=== PATIENT | male | born 1960 | race African-American/Black ===

== ENCOUNTER → 2017-01-27 | Outpatient (CLI) | payer MEDICARE, MEDICAID ==
[~2017-01-27] MED LIST: IOHEXOL-300 100 ML BOTTLE ONE; SODIUM CHLORIDE 0.9% 10ML VIAL ONE
== END | disposition home or self-care (01) ==
LOC: NM 07:19
PROVIDERS: ATTEND Urology
DX: C61 Malignant neoplasm of prostate (principal); N40.0 Benign prostatic hyperplasia without lower urinary tract symptoms
CPT/HCPCS: 74178; 78306; A4216; A9503; Q9967

== ENCOUNTER → 2017-02-01 | Outpatient (CLI) | payer MEDICARE, MEDICAID ==
[~2017-02-01] MED LIST changes: +GADOBENATE DIMEGLUMINE 529 MG/ML 10ML IV ONE; -IOHEXOL-300 100 ML BOTTLE ONE; -SODIUM CHLORIDE 0.9% 10ML VIAL ONE
== END | disposition home or self-care (01) ==
LOC: MRI 08:06
PROVIDERS: ATTEND Urology
DX: C61 Malignant neoplasm of prostate (principal); M51.24 Other intervertebral disc displacement, thoracic region
CPT/HCPCS: 72157; A9577

== ENCOUNTER → 2017-10-06 | Outpatient (CLI) | payer MEDICARE, MEDICAID | END | disposition home or self-care (01) | LOC: RAD 10:10 | PROVIDERS: ATTEND Specialist | DX: J98.11 Atelectasis (principal); R22.2 Localized swelling, mass and lump, trunk | CPT/HCPCS: 71020 ==

== ENCOUNTER → 2022-01-13 | Outpatient (CLI) | payer MEDICARE, MEDICAID | END | disposition home or self-care (01) | LOC: CT 09:51 | PROVIDERS: ATTEND Internal Medicine Nephrology | DX: N28.89 Other specified disorders of kidney and ureter (principal); N13.30 Unspecified hydronephrosis; N28.82 Megaloureter; R59.1 Generalized enlarged lymph nodes; Z98.890 Other specified postprocedural states | CPT/HCPCS: 74176 ==

== ENCOUNTER 2022-07-02 16:07 | Inpatient (IN) | payer MEDICARE, MEDICAID ==
[~2022-07-02] VITALS: Ht 157.5 cm; Wt 71.7 kg
[2022-07-02] MEDS ORDERED: ONDANSETRON HCL 4MG/2ML INJ IV STA (18:22)
[2022-07-02] MEDS ORDERED: MORPHINE SULFATE 4 MG/ML CPJ (NOT FOR IM USE) IV STA (18:22)
[2022-07-02] MEDS ORDERED: PIPERACILLIN/TAZ 3.375G PREMIX 50 ML IV ONE (18:30)
[2022-07-02 19:01] LABS: HEMATOCRIT. 29.7 % (42.0-52.0); HEMOGLOBIN. 9.7 g/dL (14.0-18.0); MEAN CORPUSCULAR HEMOGLOBIN 30.8 pg (28.0-32.0); MEAN CORPUSCULAR VOLUME 94.6 fL (80.0-94.0); MEAN PLATELET VOLUME 7.4 fl (7.4-10.4); PLATELET 280 x1000/uL (130-400); RED BLOOD CELL COUNT 3.14 mill/uL (4.7-6.1); RED CELL DISTRIBUTION WIDTH 13.2 % (11.6-14.6)
[2022-07-02 19:06] LABS: CHLORIDE 109 mEq/L (98-107)
[2022-07-02 19:20] LABS: INR 1.2; PROTHROMBIN TIME 12.5 sec (9.6-11.0)
[2022-07-02 19:22] LABS: PLATELET ESTIMATE NORMAL
[2022-07-02] MEDS ORDERED: MORPHINE SULFATE 4 MG/ML CPJ (NOT FOR IM USE) IV NR (22:15)
[2022-07-02] MEDS ORDERED: ONDANSETRON HCL 4MG/2ML INJ IV NR (22:15)
[2022-07-02] MEDS ORDERED: PIPERACILLIN/TAZ 3.375G PREMIX 50 ML IV NR (22:15)
[2022-07-03] VITALS (7 sets, daily range): BP systolic 101–140; BP diastolic 51–73
[2022-07-03 00:10] LABS: CLARITY URINE TURBID (CLEAR); COLOR URINE YELLOW (YELLOW); KETONES URINE NEGATIVE (NEGATIVE); LEUKOCYTE ESTERASE URINE 3+ (NEGATIVE); NITRITE URINE NEGATIVE (NEGATIVE); OCCULT BLOOD URINE 2+ (NEGATIVE); PROTEIN URINE 2+ (NEGATIVE); SPECIFIC GRAVITY URINE 1.009 (1.005-1.030); UROBILINOGEN URINE 0.2 E.U./dL (0.2-1.0)
[2022-07-03] MEDS ORDERED: ACETAMINOPHEN 325MG TABLET PO PRN (03:15)
[2022-07-03] MEDS ORDERED: METOPROLOL TARTRATE 100MG TABLET PO NR (04:30)
[2022-07-03] MEDS ORDERED: METO100T16 MT (05:27)
[2022-07-03] MEDS ORDERED: ASPI-1497 PO (05:27)
[2022-07-03] MEDS ORDERED: PIPERACILLIN/TAZOBACTAM 3.375 G in DEXTROSE 5% WATER 50 ML IV SCH ×2 (06:00→09:00)
[2022-07-03 07:08] LABS: HEMATOCRIT. 28.3 % (42.0-52.0); HEMOGLOBIN. 9.2 g/dL (14.0-18.0); MEAN CORPUSCULAR HEMOGLOBIN 30.6 pg (28.0-32.0); MEAN CORPUSCULAR VOLUME 93.9 fL (80.0-94.0); MEAN PLATELET VOLUME 7.9 fl (7.4-10.4); PLATELET 250 x1000/uL (130-400); RED BLOOD CELL COUNT 3.01 mill/uL (4.7-6.1); RED CELL DISTRIBUTION WIDTH 13.4 % (11.6-14.6)
[2022-07-03] MEDS ORDERED: MORPHINE SULFATE 2 MG/ML CPJ (NOT FOR IM USE) IV PRN (07:45)
[2022-07-03] MEDS ORDERED: IPRATROPIUM BROMIDE (0.02%) 0.5MG/2.5ML NEB HHN SCH (08:00)
[2022-07-03] MEDS ORDERED: MEROPENEM 500 MG in SODIUM CHLORIDE 0.9% 50 ML IV SCH (08:45)
[2022-07-03] MEDS ORDERED: ASPIRIN 81MG TABLET PO SCH ×2 (09:00)
[2022-07-03] MEDS ORDERED: CLOPIDOGREL 75MG TABLET PO SCH (09:00)
[2022-07-03] MEDS ORDERED: PANTOPRAZOLE SODIUM 40 MG/VIAL IV SCH (09:00)
[2022-07-03] MEDS ORDERED: METOPROLOL TARTRATE 100MG TABLET PO SCH (09:00)
[2022-07-03] MEDS ORDERED: DEXTROSE 50% WATER 50ML SYRINGE IV PRN (09:15)
[2022-07-03 10:00] LABS: HDL CHOLESTEROL 35 mg/dL (40-59); LDL CHOLESTEROL 28 mg/dL (5-100)
[2022-07-03] MEDS: TAMSULOSIN HCL 0.4MG SR CAPSULE PO SCH (10:12)
[2022-07-03] MEDS: PANTOPRAZOLE SODIUM 40 MG/VIAL IV SCH (10:13)
[2022-07-03] MEDS: SODIUM CHLORIDE 0.9% 1,000 ML IV SCH ×2 (10:13→16:11)
[2022-07-03] MEDS: METOPROLOL TARTRATE 100MG TABLET PO SCH ×2 (10:14→20:52)
[2022-07-03] MEDS: LINEZOLID 600 MG PREMIX 300 ML IV SCH ×2 (10:16→20:52)
[2022-07-03] MEDS: BICALUTAMIDE 50 MG TABLET PO SCH (11:06)
[2022-07-03] MEDS: BUDESONIDE 0.5MG/2ML NEB HHN SCH ×2 (12:45→20:11)
[2022-07-03] MEDS: BLOOD SUGAR DIAGNOSTIC STRIP TEST SCH ×3 (13:02→20:53)
[2022-07-03] MEDS: MEROPENEM 1000MG in NORMAL SALINE 100ML IV SCH (13:02)
[2022-07-03] MEDS: INSULIN LISPRO 100 UNITS/ML SUBCUT SCH ×3 (13:03→21:00)
[2022-07-03] MEDS ORDERED: DIATRIZOATE MEGLUMINE 300ML INFUS BTL UR ONE (16:29)
[2022-07-03] MEDS: IPRATROPIUM BROMIDE (0.02%) 0.5MG/2.5ML NEB HHN SCH (20:11)
[2022-07-03 21:37] LABS: PLATELET ESTIMATE NORMAL
[2022-07-04] VITALS (7 sets, daily range): BP systolic 93–114; BP diastolic 47–56
[2022-07-04] MEDS: SODIUM CHLORIDE 0.9% 1,000 ML IV SCH ×3 (01:49→16:13)
[2022-07-04] MEDS: IPRATROPIUM BROMIDE (0.02%) 0.5MG/2.5ML NEB HHN SCH ×4 (02:23→21:03)
[2022-07-04] MEDS ORDERED: SODI650T MT (05:37)
[2022-07-04] MEDS ORDERED: FINA5TAB11 MT (05:37)
[2022-07-04] MEDS ORDERED: TAMS-11 MT (05:37)
[2022-07-04] MEDS: BLOOD SUGAR DIAGNOSTIC STRIP TEST SCH ×4 (06:08→21:22)
[2022-07-04] MEDS: INSULIN LISPRO 100 UNITS/ML SUBCUT SCH ×4 (06:08→21:29)
[2022-07-04] MEDS: PANTOPRAZOLE SODIUM 40 MG/VIAL IV SCH (07:54)
[2022-07-04] MEDS: LINEZOLID 600 MG PREMIX 300 ML IV SCH ×2 (07:54→21:27)
[2022-07-04] MEDS: TAMSULOSIN HCL 0.4MG SR CAPSULE PO SCH (07:54)
[2022-07-04] MEDS: BICALUTAMIDE 50 MG TABLET PO SCH (07:59)
[2022-07-04] MEDS: METOPROLOL TARTRATE 100MG TABLET PO SCH ×2 (08:07→21:00)
[2022-07-04] MEDS: ASPIRIN 81MG TABLET PO SCH (08:08)
[2022-07-04 08:33] LABS: HEMOGLOBIN. 8.7 g/dL (14.0-18.0); MEAN CORPUSCULAR HEMOGLOBIN 31.2 pg (28.0-32.0); MEAN CORPUSCULAR VOLUME 93.1 fL (80.0-94.0); MEAN PLATELET VOLUME 8.3 fl (7.4-10.4); PLATELET 226 x1000/uL (130-400); RED BLOOD CELL COUNT 2.79 mill/uL (4.7-6.1); RED CELL DISTRIBUTION WIDTH 13.7 % (11.6-14.6)
[2022-07-04] MEDS: BUDESONIDE 0.5MG/2ML NEB HHN SCH ×2 (08:53→21:02)
[2022-07-04] MEDS: MEROPENEM 1000MG in NORMAL SALINE 100ML IV SCH (10:13)
[2022-07-04] MEDS: HEPARIN 5000 UNITS/ML VIAL SUBCUT SCH ×2 (10:14→21:28)
[2022-07-04 11:22] LABS: PLATELET ESTIMATE NORMAL
[2022-07-04] MEDS ORDERED: MAGNESIUM 4 G PREMIX 100 ML IV NR (15:00)
[2022-07-05] MEDS: SODIUM CHLORIDE 0.9% 1,000 ML IV SCH ×3 (02:11→20:43)
[2022-07-05] MEDS: IPRATROPIUM BROMIDE (0.02%) 0.5MG/2.5ML NEB HHN SCH ×4 (02:55→20:01)
[2022-07-05 04:00] VITALS: BP 107/53
[2022-07-05] MEDS: BLOOD SUGAR DIAGNOSTIC STRIP TEST SCH ×3 (06:35→20:32)
[2022-07-05] MEDS: INSULIN LISPRO 100 UNITS/ML SUBCUT SCH ×3 (06:35→20:32)
[2022-07-05 08:00] VITALS: BP 109/55
[2022-07-05] MEDS: BUDESONIDE 0.5MG/2ML NEB HHN SCH ×2 (08:15→20:01)
[2022-07-05] MEDS: LINEZOLID 600 MG PREMIX 300 ML IV SCH (08:15)
[2022-07-05] MEDS: TAMSULOSIN HCL 0.4MG SR CAPSULE PO SCH (08:16)
[2022-07-05] MEDS: HEPARIN 5000 UNITS/ML VIAL SUBCUT SCH ×2 (08:16→20:43)
[2022-07-05] MEDS: ASPIRIN 81MG TABLET PO SCH (08:16)
[2022-07-05] MEDS: PANTOPRAZOLE SODIUM 40 MG/VIAL IV SCH (08:16)
[2022-07-05] MEDS: BICALUTAMIDE 50 MG TABLET PO SCH (08:16)
[2022-07-05 08:23] LABS: HEMATOCRIT. 23.9 % (42.0-52.0); HEMOGLOBIN. 7.9 g/dL (14.0-18.0); MEAN CORPUSCULAR HEMOGLOBIN 30.8 pg (28.0-32.0); MEAN CORPUSCULAR VOLUME 93.6 fL (80.0-94.0); MEAN PLATELET VOLUME 8.2 fl (7.4-10.4); PLATELET 202 x1000/uL (130-400); RED BLOOD CELL COUNT 2.55 mill/uL (4.7-6.1); RED CELL DISTRIBUTION WIDTH 13.9 % (11.6-14.6)
[2022-07-05] MEDS: METOPROLOL TARTRATE 100MG TABLET PO SCH ×2 (08:26→20:43)
[2022-07-05] MEDS ORDERED: NALOXONE HCL 0.4MG/ML VIAL IV PRN (09:15)
[2022-07-05] MEDS: MEROPENEM 1000MG in NORMAL SALINE 100ML IV SCH (10:09)
[2022-07-05 11:29] LABS: PLATELET ESTIMATE NORMAL
[2022-07-05 12:00] VITALS: BP 111/49
[2022-07-05 16:00] VITALS: BP 124/55
[2022-07-05 20:00] VITALS: BP 125/81
[2022-07-06] VITALS: BP 115/59
[2022-07-06] MEDS: IPRATROPIUM BROMIDE (0.02%) 0.5MG/2.5ML NEB HHN SCH ×3 (01:05→15:34)
[2022-07-06 04:00] VITALS: BP 109/54
[2022-07-06] MEDS: SODIUM CHLORIDE 0.9% 1,000 ML IV SCH (04:58)
[2022-07-06] MEDS: BLOOD SUGAR DIAGNOSTIC STRIP TEST SCH ×2 (05:50→12:29)
[2022-07-06] MEDS: INSULIN LISPRO 100 UNITS/ML SUBCUT SCH ×2 (05:50→12:29)
[2022-07-06 06:21] LABS: HEMATOCRIT. 24.6 % (42.0-52.0); HEMOGLOBIN. 8.1 g/dL (14.0-18.0); MEAN CORPUSCULAR VOLUME 94.2 fL (80.0-94.0); MEAN PLATELET VOLUME 8.2 fl (7.4-10.4); PLATELET 191 x1000/uL (130-400); RED BLOOD CELL COUNT 2.61 mill/uL (4.7-6.1); RED CELL DISTRIBUTION WIDTH 13.6 % (11.6-14.6)
[2022-07-06 08:00] VITALS: BP 111/82
[2022-07-06] MEDS: ASPIRIN 81MG TABLET PO SCH (08:48)
[2022-07-06] MEDS: TAMSULOSIN HCL 0.4MG SR CAPSULE PO SCH (08:49)
[2022-07-06] MEDS: PANTOPRAZOLE SODIUM 40 MG/VIAL IV SCH (08:50)
[2022-07-06] MEDS: BICALUTAMIDE 50 MG TABLET PO SCH (08:50)
[2022-07-06] MEDS: HEPARIN 5000 UNITS/ML VIAL SUBCUT SCH (08:50)
[2022-07-06] MEDS: METOPROLOL TARTRATE 100MG TABLET PO SCH (08:50)
[2022-07-06 09:09] LABS: PLATELET ESTIMATE NORMAL
[2022-07-06] MEDS: MEROPENEM 1000MG in NORMAL SALINE 100ML IV SCH (09:31)
[2022-07-06 12:00] VITALS: BP 137/64
[2022-07-06 15:27] VITALS: BP 137/64
[2022-07-06 16:00] VITALS: BP 140/65
[2022-07-06] MEDS ORDERED: CITRIC ACID/SODIUM CITRATE SOLN 15ML UDC PO SCH (17:00)
[2022-07-06] MEDS ORDERED: EPOETIN ALFA-EPBX 4,000 UNIT/ML VIAL SUBCUT SCH (21:00)
== END 2022-07-06 17:15 | DRG 871 ==
LOC: ER 16:07 → SUPCPDRO 17:46 → MICUSO 22:47 → EDBEDREQTM 23:04 → EDBEDREQ 23:04 → EDBEDREQTM 23:12 → ENRESERV 23:44 → 8WST 07-03 01:29
PROVIDERS: ADMIT Internal Medicine; ATTEND Internal Medicine
PROC: 5A09357 Assistance with Respiratory Ventilation, Less than 24 Consecutive Hours, Continuous Positive Airway Pressure (ICD-10-PCS; principal; 2022-07-04)
PROC: 5A09357 Assistance with Respiratory Ventilation, Less than 24 Consecutive Hours, Continuous Positive Airway Pressure (ICD-10-PCS; 2022-07-05)
PROC: 5A09357 Assistance with Respiratory Ventilation, Less than 24 Consecutive Hours, Continuous Positive Airway Pressure (ICD-10-PCS; 2022-07-06)
DX: A41.50 Gram-negative sepsis, unspecified (principal); G82.50 Quadriplegia, unspecified; N17.0 Acute kidney failure with tubular necrosis; I13.0 Hypertensive heart and chronic kidney disease with heart failure and stage 1 through stage 4 chronic kidney disease, or unspecified chronic kidney disease; I50.32 Chronic diastolic (congestive) heart failure; J98.11 Atelectasis; K59.2 Neurogenic bowel, not elsewhere classified; N13.6 Pyonephrosis; N39.0 Urinary tract infection, site not specified; N18.4 Chronic kidney disease, stage 4 (severe); R65.20 Severe sepsis without septic shock; E11.22 Type 2 diabetes mellitus with diabetic chronic kidney disease; E83.42 Hypomagnesemia; G47.33 Obstructive sleep apnea (adult) (pediatric); J44.9 Chronic obstructive pulmonary disease, unspecified; N31.9 Neuromuscular dysfunction of bladder, unspecified; D63.1 Anemia in chronic kidney disease; Z20.822 Contact with and (suspected) exposure to COVID-19; I25.10 Atherosclerotic heart disease of native coronary artery without angina pectoris; M48.02 Spinal stenosis, cervical region; R59.0 Localized enlarged lymph nodes; B96.89 Other specified bacterial agents as the cause of diseases classified elsewhere; B95.2 Enterococcus as the cause of diseases classified elsewhere; Q85.00 Neurofibromatosis, unspecified; S14.109D Unspecified injury at unspecified level of cervical spinal cord, subsequent encounter; Z96.0 Presence of urogenital implants; Z85.46 Personal history of malignant neoplasm of prostate; Z87.891 Personal history of nicotine dependence; Z92.3 Personal history of irradiation; Z90.79 Acquired absence of other genital organ(s); X58.XXXD Exposure to other specified factors, subsequent encounter; Z83.3 Family history of diabetes mellitus
CPT/HCPCS: 36415; 71045; 74176; 74430; 80048; 80053; 80061; 81003; 82962; 83605; 83735; 84145; 84484; 85025; 87077; 87186; 87426; 93005; 93306; 94640; 94660; 97162; 97166; 99291; C1893; C9113; J1644; J1815; J2020; J2185; J2270; J2405; J2543; J3475; J7030; J7060; J7626; Q9958

== ENCOUNTER 2022-07-06 17:57 | Inpatient (IN) | payer MEDICARE, MEDICAID ==
[~2022-07-06] VITALS: Ht 157.5 cm; Wt 63.5 kg
[~2022-07-06 17:57] MED LIST changes: +ASPI-1497 PO; +FINA5TAB11 MT; -GADOBENATE DIMEGLUMINE 529 MG/ML 10ML IV ONE; +METO100T16 MT; +SODI650T MT; +TAMS-11 MT
[2022-07-06 19:30] VITALS: BP 152/62
[2022-07-06 20:09] VITALS: BP 153/62
[2022-07-06] MEDS ORDERED: DEXTROSE 50% WATER 50ML SYRINGE IV PRN ×5 (20:45→21:30)
[2022-07-06] MEDS ORDERED: BLOOD SUGAR DIAGNOSTIC STRIP TEST SCH (21:00)
[2022-07-06] MEDS ORDERED: MORPHINE SULFATE 2 MG/ML CPJ (NOT FOR IM USE) IV PRN (21:30)
[2022-07-06] MEDS ORDERED: NALOXONE HCL 0.4 MG/ML 1ML VIAL IV PRN (21:30)
[2022-07-06] MEDS: SODIUM CHLORIDE 0.9% 1,000 ML IV SCH (22:40)
[2022-07-06] MEDS: EPOETIN ALFA-EPBX 4,000 UNIT/ML VIAL SUBCUT SCH (22:41)
[2022-07-06] MEDS: METOPROLOL TARTRATE 100MG TABLET PO SCH (22:42)
[2022-07-06] MEDS: HEPARIN 5000 UNITS/ML VIAL SUBCUT SCH (22:43)
[2022-07-07 05:58] LABS: BASOPHILS % 0.4 % (0.0-2.0); EOSINOPHILS % 0.6 % (0.0-5.0); HEMATOCRIT. 24.4 % (42.0-52.0); LYMPHOCYTES % 8.8 % (20.0-50.0); MEAN CORPUSCULAR HEMOGLOBIN 30.9 pg (28.0-32.0); MEAN CORPUSCULAR VOLUME 94.4 fL (80.0-94.0); MEAN PLATELET VOLUME 8.6 fl (7.4-10.4); MONOCYTES % 12.4 % (2.0-8.0); NEUTROPHILS % 77.8 % (40.0-76.0); PLATELET 187 x1000/uL (130-400); RED BLOOD CELL COUNT 2.58 mill/uL (4.7-6.1); RED CELL DISTRIBUTION WIDTH 13.6 % (11.6-14.6)
[2022-07-07 06:13] LABS: CHLORIDE 111 mEq/L (98-107)
[2022-07-07] MEDS: BLOOD SUGAR DIAGNOSTIC STRIP TEST SCH ×4 (06:30→20:54)
[2022-07-07] MEDS ORDERED: BLOOD SUGAR DIAGNOSTIC STRIP TEST SCH ×3 (06:30)
[2022-07-07] MEDS: IPRATROPIUM BROMIDE (0.02%) 0.5MG/2.5ML NEB HHN SCH ×4 (07:45→20:12)
[2022-07-07 08:00] VITALS: BP 144/68
[2022-07-07] MEDS: SODIUM CHLORIDE 0.9% 1,000 ML IV SCH ×2 (08:00→18:30)
[2022-07-07] MEDS: CITRIC ACID/SODIUM CITRATE SOLN 15ML UDC PO SCH ×2 (09:00→17:00)
[2022-07-07] MEDS: INSULIN LISPRO 100 UNITS/ML SUBCUT SCH ×4 (09:00→20:55)
[2022-07-07] MEDS ORDERED: INSULIN LISPRO 100 UNITS/ML SUBCUT SCH (09:00)
[2022-07-07] MEDS: BICALUTAMIDE 50 MG TABLET PO SCH (09:00)
[2022-07-07] MEDS: HEPARIN 5000 UNITS/ML VIAL SUBCUT SCH ×2 (09:47→20:54)
[2022-07-07] MEDS: PANTOPRAZOLE SODIUM 40 MG/VIAL IV SCH (09:47)
[2022-07-07] MEDS: ASPIRIN 81MG TABLET PO SCH (09:48)
[2022-07-07] MEDS: TAMSULOSIN HCL 0.4MG SR CAPSULE PO SCH (09:48)
[2022-07-07] MEDS: METOPROLOL TARTRATE 100MG TABLET PO SCH ×2 (09:50→20:56)
[2022-07-07] MEDS ORDERED: MEROPENEM 1,000 MG in SODIUM CHLORIDE 0.9% 100 ML IV SCH (10:00)
[2022-07-07] MEDS: ACETAMINOPHEN 325MG TABLET PO PRN ×3 (11:20→23:06)
[2022-07-07] MEDS: CEFEPIME 1,000 MG in DEXTROSE 5% WATER 50 ML IV SCH (12:30)
[2022-07-07] MEDS ORDERED: HYDROCODONE/ACETAMINOPHEN 10/325MG TABLET PO PRN (14:00)
[2022-07-07 20:00] VITALS: BP 140/56
[2022-07-08] MEDS: IPRATROPIUM BROMIDE (0.02%) 0.5MG/2.5ML NEB HHN SCH ×3 (01:51→20:29)
[2022-07-08] MEDS: SODIUM CHLORIDE 0.9% 1,000 ML IV SCH (04:00)
[2022-07-08] MEDS: BLOOD SUGAR DIAGNOSTIC STRIP TEST SCH ×4 (05:22→21:54)
[2022-07-08] MEDS: INSULIN LISPRO 100 UNITS/ML SUBCUT SCH ×4 (06:28→21:00)
[2022-07-08 06:33] LABS: BASOPHILS % 0.4 % (0.0-2.0); EOSINOPHILS % 0.8 % (0.0-5.0); HEMATOCRIT. 24.9 % (42.0-52.0); HEMOGLOBIN. 8.1 g/dL (14.0-18.0); LYMPHOCYTES % 8.3 % (20.0-50.0); MEAN CORPUSCULAR HEMOGLOBIN 31.2 pg (28.0-32.0); MEAN CORPUSCULAR VOLUME 95.5 fL (80.0-94.0); MEAN PLATELET VOLUME 8.5 fl (7.4-10.4); MONOCYTES % 12.1 % (2.0-8.0); NEUTROPHILS % 78.4 % (40.0-76.0); PLATELET 186 x1000/uL (130-400); RED CELL DISTRIBUTION WIDTH 13.4 % (11.6-14.6)
[2022-07-08 07:04] LABS: FOLIC ACID (FOLATE) SERUM 6.5 ng/mL (>5.38)
[2022-07-08 08:00] VITALS: BP 157/76
[2022-07-08] MEDS: ASPIRIN 81MG TABLET PO SCH (09:44)
[2022-07-08] MEDS: PANTOPRAZOLE SODIUM 40 MG/VIAL IV SCH (09:44)
[2022-07-08] MEDS: HEPARIN 5000 UNITS/ML VIAL SUBCUT SCH ×2 (09:44→21:53)
[2022-07-08] MEDS: TAMSULOSIN HCL 0.4MG SR CAPSULE PO SCH (09:45)
[2022-07-08] MEDS: METOPROLOL TARTRATE 100MG TABLET PO SCH ×2 (09:45→21:52)
[2022-07-08] MEDS: BICALUTAMIDE 50 MG TABLET PO SCH (10:21)
[2022-07-08] MEDS: CITRIC ACID/SODIUM CITRATE SOLN 15ML UDC PO SCH ×2 (10:21→18:01)
[2022-07-08] MEDS: CEFEPIME 1,000 MG in DEXTROSE 5% WATER 50 ML IV SCH (12:49)
[2022-07-08] MEDS: PROMETHAZINE/DEXTROMETHORPHAN 6.25-15MG/5ML BOTTLE 120ML PO PRN ×2 (12:49→18:46)
[2022-07-08] MEDS ORDERED: LEVO500T90 MT (14:16)
[2022-07-08 20:00] VITALS: BP 112/52
[2022-07-08] MEDS: EPOETIN ALFA-EPBX 4,000 UNIT/ML VIAL SUBCUT SCH (21:54)
[2022-07-09] MEDS: IPRATROPIUM BROMIDE (0.02%) 0.5MG/2.5ML NEB HHN SCH ×4 (02:09→21:18)
[2022-07-09] MEDS: BLOOD SUGAR DIAGNOSTIC STRIP TEST SCH ×4 (06:30→21:02)
[2022-07-09 06:36] LABS: BASOPHILS % 0.2 % (0.0-2.0); EOSINOPHILS % 0.9 % (0.0-5.0); HEMATOCRIT. 25.2 % (42.0-52.0); HEMOGLOBIN. 8.3 g/dL (14.0-18.0); LYMPHOCYTES % 7.3 % (20.0-50.0); MEAN CORPUSCULAR VOLUME 93.9 fL (80.0-94.0); MEAN PLATELET VOLUME 8.3 fl (7.4-10.4); NEUTROPHILS % 83.6 % (40.0-76.0); PLATELET 199 x1000/uL (130-400); RED BLOOD CELL COUNT 2.68 mill/uL (4.7-6.1); RED CELL DISTRIBUTION WIDTH 13.6 % (11.6-14.6)
[2022-07-09 08:00] VITALS: BP 154/76
[2022-07-09] MEDS: INSULIN LISPRO 100 UNITS/ML SUBCUT SCH ×4 (09:00→21:00)
[2022-07-09] MEDS: CITRIC ACID/SODIUM CITRATE SOLN 15ML UDC PO SCH ×2 (09:29→16:09)
[2022-07-09] MEDS: ASPIRIN 81MG TABLET PO SCH (09:29)
[2022-07-09] MEDS: BICALUTAMIDE 50 MG TABLET PO SCH (09:30)
[2022-07-09] MEDS: FAMOTIDINE 20MG TABLET PO SCH (09:31)
[2022-07-09] MEDS: METOPROLOL TARTRATE 100MG TABLET PO SCH ×2 (09:31→21:05)
[2022-07-09] MEDS: TAMSULOSIN HCL 0.4MG SR CAPSULE PO SCH (09:32)
[2022-07-09] MEDS: HEPARIN 5000 UNITS/ML VIAL SUBCUT SCH ×2 (10:40→21:03)
[2022-07-09] MEDS: CEFEPIME 1,000 MG in DEXTROSE 5% WATER 50 ML IV SCH (11:29)
[2022-07-09] MEDS: PROMETHAZINE/DEXTROMETHORPHAN 6.25-15MG/5ML BOTTLE 120ML PO PRN (11:30)
[2022-07-09 20:00] VITALS: BP 149/47
[2022-07-09] MEDS: HYDROCODONE/ACETAMINOPHEN 10/325MG TABLET PO PRN (23:26)
[2022-07-10] MEDS: IPRATROPIUM BROMIDE (0.02%) 0.5MG/2.5ML NEB HHN SCH ×4 (02:17→21:03)
[2022-07-10] MEDS: BLOOD SUGAR DIAGNOSTIC STRIP TEST SCH ×4 (06:45→21:00)
[2022-07-10 08:00] VITALS: BP 156/80
[2022-07-10] MEDS: INSULIN LISPRO 100 UNITS/ML SUBCUT SCH ×4 (09:00→21:00)
[2022-07-10] MEDS: ASPIRIN 81MG TABLET PO SCH (09:59)
[2022-07-10] MEDS: BICALUTAMIDE 50 MG TABLET PO SCH (09:59)
[2022-07-10] MEDS: AMLODIPINE 5MG TABLET PO SCH (10:00)
[2022-07-10] MEDS: CITRIC ACID/SODIUM CITRATE SOLN 15ML UDC PO SCH ×2 (10:01→16:01)
[2022-07-10] MEDS: METOPROLOL TARTRATE 100MG TABLET PO SCH ×2 (10:01→21:33)
[2022-07-10] MEDS: FAMOTIDINE 20MG TABLET PO SCH (10:01)
[2022-07-10] MEDS: TAMSULOSIN HCL 0.4MG SR CAPSULE PO SCH (10:02)
[2022-07-10] MEDS: HEPARIN 5000 UNITS/ML VIAL SUBCUT SCH ×2 (10:02→21:31)
[2022-07-10] MEDS: CEFEPIME 1,000 MG in DEXTROSE 5% WATER 50 ML IV SCH (12:01)
[2022-07-10] MEDS: HYDROCODONE/ACETAMINOPHEN 10/325MG TABLET PO PRN (14:08)
[2022-07-10] MEDS: PROMETHAZINE/DEXTROMETHORPHAN 6.25-15MG/5ML BOTTLE 120ML PO PRN (16:01)
[2022-07-10 20:06] VITALS: BP 106/61
[2022-07-10] MEDS: EPOETIN ALFA-EPBX 4,000 UNIT/ML VIAL SUBCUT SCH (21:34)
[2022-07-11] MEDS: IPRATROPIUM BROMIDE (0.02%) 0.5MG/2.5ML NEB HHN SCH ×3 (01:53→20:24)
[2022-07-11 05:56] LABS: HEMATOCRIT. 24.6 % (42.0-52.0); HEMOGLOBIN. 8.1 g/dL (14.0-18.0); MEAN CORPUSCULAR HEMOGLOBIN 30.9 pg (28.0-32.0); MEAN CORPUSCULAR VOLUME 93.8 fL (80.0-94.0); PLATELET 260 x1000/uL (130-400); RED BLOOD CELL COUNT 2.62 mill/uL (4.7-6.1); RED CELL DISTRIBUTION WIDTH 13.6 % (11.6-14.6)
[2022-07-11] MEDS: BLOOD SUGAR DIAGNOSTIC STRIP TEST SCH ×4 (06:05→20:49)
[2022-07-11 08:00] VITALS: BP 139/83
[2022-07-11] MEDS: BUDESONIDE 0.5MG/2ML NEB HHN SCH ×2 (08:00→20:25)
[2022-07-11] MEDS: TAMSULOSIN HCL 0.4MG SR CAPSULE PO SCH (08:35)
[2022-07-11] MEDS: ASPIRIN 81MG TABLET PO SCH (08:35)
[2022-07-11] MEDS: FAMOTIDINE 20MG TABLET PO SCH (08:35)
[2022-07-11] MEDS: AMLODIPINE 5MG TABLET PO SCH (08:36)
[2022-07-11] MEDS: METOPROLOL TARTRATE 100MG TABLET PO SCH ×2 (08:36→20:49)
[2022-07-11] MEDS: HEPARIN 5000 UNITS/ML VIAL SUBCUT SCH ×2 (08:37→20:45)
[2022-07-11] MEDS: INSULIN LISPRO 100 UNITS/ML SUBCUT SCH ×4 (08:37→20:50)
[2022-07-11] MEDS: BICALUTAMIDE 50 MG TABLET PO SCH (09:17)
[2022-07-11] MEDS: HYDROCODONE/ACETAMINOPHEN 10/325MG TABLET PO PRN ×2 (09:28→14:15)
[2022-07-11] MEDS: BISACODYL 10MG SUPP PR SCH (09:54)
[2022-07-11 10:04] LABS: ATYPICAL LYMPHOCYTES 1
[2022-07-11 10:05] LABS: PLATELET ESTIMATE NORMAL
[2022-07-11] MEDS: CEFEPIME 1,000 MG in DEXTROSE 5% WATER 50 ML IV SCH (11:46)
[2022-07-11] MEDS: CITRIC ACID/SODIUM CITRATE SOLN 15ML UDC PO SCH ×2 (11:46→17:15)
[2022-07-11] MEDS: PROMETHAZINE/DEXTROMETHORPHAN 6.25-15MG/5ML BOTTLE 120ML PO PRN ×2 (14:18→21:10)
[2022-07-11 20:00] VITALS: BP 125/62
[2022-07-12] MEDS: IPRATROPIUM BROMIDE (0.02%) 0.5MG/2.5ML NEB HHN SCH ×5 (01:02→23:26)
[2022-07-12] MEDS: BLOOD SUGAR DIAGNOSTIC STRIP TEST SCH ×4 (06:30→20:09)
[2022-07-12 08:00] VITALS: BP 153/65
[2022-07-12] MEDS: INSULIN LISPRO 100 UNITS/ML SUBCUT SCH ×4 (09:00→20:09)
[2022-07-12] MEDS: BISACODYL 10MG SUPP PR SCH (09:00)
[2022-07-12] MEDS: CITRIC ACID/SODIUM CITRATE SOLN 15ML UDC PO SCH ×2 (09:10→16:38)
[2022-07-12] MEDS: ASPIRIN 81MG TABLET PO SCH (09:10)
[2022-07-12] MEDS: METOPROLOL TARTRATE 100MG TABLET PO SCH ×2 (09:10→20:09)
[2022-07-12] MEDS: TAMSULOSIN HCL 0.4MG SR CAPSULE PO SCH (09:11)
[2022-07-12] MEDS: HEPARIN 5000 UNITS/ML VIAL SUBCUT SCH ×2 (09:11→20:08)
[2022-07-12] MEDS: FAMOTIDINE 20MG TABLET PO SCH (09:17)
[2022-07-12] MEDS: AMLODIPINE 5MG TABLET PO SCH (09:17)
[2022-07-12] MEDS: BICALUTAMIDE 50 MG TABLET PO SCH (09:21)
[2022-07-12] MEDS: CEFEPIME 1,000 MG in DEXTROSE 5% WATER 50 ML IV SCH (12:14)
[2022-07-12 16:20] LABS: HEMATOCRIT. 27.9 % (42.0-52.0); HEMOGLOBIN. 9.2 g/dL (14.0-18.0); MEAN CORPUSCULAR HEMOGLOBIN 30.9 pg (28.0-32.0); MEAN PLATELET VOLUME 7.5 fl (7.4-10.4); PLATELET 312 x1000/uL (130-400); RED BLOOD CELL COUNT 2.97 mill/uL (4.7-6.1); RED CELL DISTRIBUTION WIDTH 13.4 % (11.6-14.6)
[2022-07-12 20:00] VITALS: BP 147/72
[2022-07-12] MEDS: BUDESONIDE 0.5MG/2ML NEB HHN SCH (20:18)
[2022-07-12 22:22] LABS: PLATELET ESTIMATE NORMAL
[2022-07-12] MEDS: PROMETHAZINE/DEXTROMETHORPHAN 6.25-15MG/5ML BOTTLE 120ML PO PRN (23:17)
[2022-07-13 00:12] LABS: CLARITY URINE CLEAR (CLEAR); COLOR URINE YELLOW (YELLOW); KETONES URINE NEGATIVE (NEGATIVE); LEUKOCYTE ESTERASE URINE 3+ (NEGATIVE); NITRITE URINE NEGATIVE (NEGATIVE); OCCULT BLOOD URINE 2+ (NEGATIVE); PH URINE 6.5 (4.5-8.0); PROTEIN URINE 1+ (NEGATIVE); SPECIFIC GRAVITY URINE 1.009 (1.005-1.030); UROBILINOGEN URINE 0.2 E.U./dL (0.2-1.0)
[2022-07-13] MEDS: BLOOD SUGAR DIAGNOSTIC STRIP TEST SCH ×4 (06:25→21:38)
[2022-07-13] MEDS: IPRATROPIUM BROMIDE (0.02%) 0.5MG/2.5ML NEB HHN SCH ×3 (07:34→21:34)
[2022-07-13] MEDS: BUDESONIDE 0.5MG/2ML NEB HHN SCH ×2 (07:34→21:35)
[2022-07-13 07:54] VITALS: BP 156/77
[2022-07-13] MEDS: INSULIN LISPRO 100 UNITS/ML SUBCUT SCH ×4 (09:00→21:00)
[2022-07-13] MEDS: BICALUTAMIDE 50 MG TABLET PO SCH (10:04)
[2022-07-13] MEDS: BISACODYL 10MG SUPP PR SCH (10:04)
[2022-07-13] MEDS: FAMOTIDINE 20MG TABLET PO SCH (10:04)
[2022-07-13] MEDS: CITRIC ACID/SODIUM CITRATE SOLN 15ML UDC PO SCH ×2 (10:04→18:34)
[2022-07-13] MEDS: HEPARIN 5000 UNITS/ML VIAL SUBCUT SCH ×2 (10:04→20:24)
[2022-07-13] MEDS: AMLODIPINE 5MG TABLET PO SCH (10:05)
[2022-07-13] MEDS: ASPIRIN 81MG TABLET PO SCH (10:05)
[2022-07-13] MEDS: METOPROLOL TARTRATE 100MG TABLET PO SCH ×2 (10:05→20:24)
[2022-07-13] MEDS: TAMSULOSIN HCL 0.4MG SR CAPSULE PO SCH (10:05)
[2022-07-13] MEDS: CEFEPIME 1,000 MG in DEXTROSE 5% WATER 50 ML IV SCH (12:37)
[2022-07-13] MEDS: HYDROCODONE/ACETAMINOPHEN 10/325MG TABLET PO PRN (14:08)
[2022-07-13 20:00] VITALS: BP 146/71
[2022-07-14 00:10] VITALS: BP 150/80
[2022-07-14] MEDS: IPRATROPIUM BROMIDE (0.02%) 0.5MG/2.5ML NEB HHN SCH ×4 (01:32→20:57)
[2022-07-14 06:17] LABS: HEMATOCRIT. 24.4 % (42.0-52.0); HEMOGLOBIN. 8.2 g/dL (14.0-18.0); MEAN CORPUSCULAR HEMOGLOBIN 31.3 pg (28.0-32.0); MEAN CORPUSCULAR VOLUME 93.2 fL (80.0-94.0); MEAN PLATELET VOLUME 7.5 fl (7.4-10.4); PLATELET 281 x1000/uL (130-400); RED BLOOD CELL COUNT 2.62 mill/uL (4.7-6.1); RED CELL DISTRIBUTION WIDTH 13.8 % (11.6-14.6)
[2022-07-14] MEDS: INSULIN LISPRO 100 UNITS/ML SUBCUT SCH ×4 (07:24→21:00)
[2022-07-14] MEDS: BLOOD SUGAR DIAGNOSTIC STRIP TEST SCH ×4 (07:24→21:00)
[2022-07-14 08:00] VITALS: BP 108/66
[2022-07-14] MEDS: BICALUTAMIDE 50 MG TABLET PO SCH (08:03)
[2022-07-14] MEDS: ASPIRIN 81MG TABLET PO SCH (08:04)
[2022-07-14] MEDS: CITRIC ACID/SODIUM CITRATE SOLN 15ML UDC PO SCH (08:04)
[2022-07-14] MEDS: FAMOTIDINE 20MG TABLET PO SCH (08:06)
[2022-07-14] MEDS: HYDROCODONE/ACETAMINOPHEN 10/325MG TABLET PO PRN (08:08)
[2022-07-14] MEDS: HEPARIN 5000 UNITS/ML VIAL SUBCUT SCH ×2 (08:13→20:36)
[2022-07-14] MEDS: TAMSULOSIN HCL 0.4MG SR CAPSULE PO SCH (08:14)
[2022-07-14] MEDS: BISACODYL 10MG SUPP PR SCH (08:14)
[2022-07-14] MEDS: METOPROLOL TARTRATE 100MG TABLET PO SCH ×2 (08:14→20:37)
[2022-07-14] MEDS: AMLODIPINE 5MG TABLET PO SCH (08:15)
[2022-07-14] MEDS: BUDESONIDE 0.5MG/2ML NEB HHN SCH ×2 (09:06→20:50)
[2022-07-14] MEDS ORDERED: MAGNESIUM GLUCONATE 500MG TABLET PO NR (10:00)
[2022-07-14] MEDS: CEFEPIME 1,000 MG in DEXTROSE 5% WATER 50 ML IV SCH (12:35)
[2022-07-14 17:23] LABS: PLATELET ESTIMATE NORMAL
[2022-07-15] MEDS: IPRATROPIUM BROMIDE (0.02%) 0.5MG/2.5ML NEB HHN SCH ×4 (01:10→19:54)
[2022-07-15] MEDS: BLOOD SUGAR DIAGNOSTIC STRIP TEST SCH ×4 (06:10→21:22)
[2022-07-15] MEDS: INSULIN LISPRO 100 UNITS/ML SUBCUT SCH ×4 (06:11→21:21)
[2022-07-15 06:35] LABS: HEMATOCRIT. 25.1 % (42.0-52.0); HEMOGLOBIN. 8.3 g/dL (14.0-18.0); MEAN CORPUSCULAR HEMOGLOBIN 31.2 pg (28.0-32.0); MEAN CORPUSCULAR VOLUME 94.2 fL (80.0-94.0); MEAN PLATELET VOLUME 7.7 fl (7.4-10.4); PLATELET 288 x1000/uL (130-400); RED BLOOD CELL COUNT 2.67 mill/uL (4.7-6.1); RED CELL DISTRIBUTION WIDTH 13.8 % (11.6-14.6)
[2022-07-15 08:00] VITALS: BP 136/73
[2022-07-15 08:25] LABS: PHOSPHORUS 4.3 mg/dL (2.5-4.9)
[2022-07-15] MEDS: METOPROLOL TARTRATE 100MG TABLET PO SCH ×2 (09:27→20:32)
[2022-07-15] MEDS: BICALUTAMIDE 50 MG TABLET PO SCH (09:27)
[2022-07-15] MEDS: BISACODYL 10MG SUPP PR SCH (09:27)
[2022-07-15] MEDS: ASPIRIN 81MG TABLET PO SCH (09:28)
[2022-07-15] MEDS: HEPARIN 5000 UNITS/ML VIAL SUBCUT SCH ×2 (09:28→20:31)
[2022-07-15] MEDS: HYDROCODONE/ACETAMINOPHEN 10/325MG TABLET PO PRN ×3 (09:28→21:52)
[2022-07-15] MEDS: TAMSULOSIN HCL 0.4MG SR CAPSULE PO SCH (09:28)
[2022-07-15] MEDS: AMLODIPINE 5MG TABLET PO SCH (09:28)
[2022-07-15] MEDS: FAMOTIDINE 20MG TABLET PO SCH (09:28)
[2022-07-15] MEDS ORDERED: MAGNESIUM 2 G PREMIX 50 ML IV NR (11:00)
[2022-07-15] MEDS: CEFEPIME 1,000 MG in DEXTROSE 5% WATER 50 ML IV SCH (11:31)
[2022-07-15] MEDS ORDERED: SODIUM PHOS,M-BASIC-D-BASIC 20 MM in DEXT 5% WATER 243.3333 ML IV ONE (12:30)
[2022-07-15 12:54] LABS: PLATELET ESTIMATE NORMAL
[2022-07-15 15:11] LABS: 25-HYDROXY VITAMIN D3 7.6 ng/mL (.)
[2022-07-15 20:00] VITALS: BP 132/64
[2022-07-15] MEDS: PROMETHAZINE/DEXTROMETHORPHAN 6.25-15MG/5ML BOTTLE 120ML PO PRN (20:35)
[2022-07-16] MEDS: IPRATROPIUM BROMIDE (0.02%) 0.5MG/2.5ML NEB HHN SCH ×4 (01:57→20:18)
[2022-07-16] MEDS: BLOOD SUGAR DIAGNOSTIC STRIP TEST SCH ×4 (06:44→20:58)
[2022-07-16] MEDS: INSULIN LISPRO 100 UNITS/ML SUBCUT SCH ×4 (06:44→20:58)
[2022-07-16 07:00] LABS: HEMATOCRIT. 24.7 % (42.0-52.0); HEMOGLOBIN. 8.4 g/dL (14.0-18.0); MEAN CORPUSCULAR VOLUME 93.6 fL (80.0-94.0); MEAN PLATELET VOLUME 7.8 fl (7.4-10.4); PLATELET 277 x1000/uL (130-400); RED BLOOD CELL COUNT 2.64 mill/uL (4.7-6.1); RED CELL DISTRIBUTION WIDTH 13.5 % (11.6-14.6)
[2022-07-16 07:34] LABS: PHOSPHORUS 4.8 mg/dL (2.5-4.9)
[2022-07-16 08:00] VITALS: BP 134/66
[2022-07-16] MEDS: TAMSULOSIN HCL 0.4MG SR CAPSULE PO SCH (08:52)
[2022-07-16] MEDS: ASPIRIN 81MG TABLET PO SCH (08:52)
[2022-07-16] MEDS: AMLODIPINE 5MG TABLET PO SCH (08:53)
[2022-07-16] MEDS: HYDROCODONE/ACETAMINOPHEN 10/325MG TABLET PO PRN ×2 (08:53→13:59)
[2022-07-16] MEDS: FAMOTIDINE 20MG TABLET PO SCH (08:53)
[2022-07-16] MEDS: BICALUTAMIDE 50 MG TABLET PO SCH (08:53)
[2022-07-16] MEDS: BISACODYL 10MG SUPP PR SCH (08:53)
[2022-07-16] MEDS: HEPARIN 5000 UNITS/ML VIAL SUBCUT SCH ×2 (08:53→20:55)
[2022-07-16] MEDS: METOPROLOL TARTRATE 100MG TABLET PO SCH ×2 (08:54→20:56)
[2022-07-16] MEDS: CEFEPIME 1,000 MG in DEXTROSE 5% WATER 50 ML IV SCH (12:46)
[2022-07-16 14:09] LABS: PLATELET ESTIMATE NORMAL
[2022-07-16] MEDS ORDERED: ERGOCALCIFEROL 50000UNITS CAPSULE PO SCH (14:45)
[2022-07-16 20:00] VITALS: BP 101/30
[2022-07-17] MEDS: IPRATROPIUM BROMIDE (0.02%) 0.5MG/2.5ML NEB HHN SCH ×4 (01:01→20:18)
[2022-07-17] MEDS: INSULIN LISPRO 100 UNITS/ML SUBCUT SCH ×4 (05:47→20:09)
[2022-07-17] MEDS: BLOOD SUGAR DIAGNOSTIC STRIP TEST SCH ×4 (05:47→20:09)
[2022-07-17 08:00] VITALS: BP 133/66
[2022-07-17] MEDS: BISACODYL 10MG SUPP PR SCH (08:45)
[2022-07-17] MEDS: ASPIRIN 81MG TABLET PO SCH (08:45)
[2022-07-17] MEDS: BICALUTAMIDE 50 MG TABLET PO SCH (08:45)
[2022-07-17] MEDS: AMLODIPINE 5MG TABLET PO SCH (08:46)
[2022-07-17] MEDS: TAMSULOSIN HCL 0.4MG SR CAPSULE PO SCH (08:46)
[2022-07-17] MEDS: METOPROLOL TARTRATE 100MG TABLET PO SCH ×2 (08:46→20:09)
[2022-07-17] MEDS: FAMOTIDINE 20MG TABLET PO SCH (08:46)
[2022-07-17] MEDS: HYDROCODONE/ACETAMINOPHEN 10/325MG TABLET PO PRN (08:51)
[2022-07-17] MEDS: HEPARIN 5000 UNITS/ML VIAL SUBCUT SCH ×2 (10:04→20:09)
[2022-07-17] MEDS: PROMETHAZINE/DEXTROMETHORPHAN 6.25-15MG/5ML BOTTLE 120ML PO PRN (20:14)
[2022-07-17 20:20] VITALS: BP 132/64
[2022-07-18] MEDS: IPRATROPIUM BROMIDE (0.02%) 0.5MG/2.5ML NEB HHN SCH ×3 (02:31→13:50)
[2022-07-18] MEDS: BLOOD SUGAR DIAGNOSTIC STRIP TEST SCH ×2 (05:58→11:15)
[2022-07-18] MEDS: INSULIN LISPRO 100 UNITS/ML SUBCUT SCH ×2 (05:58→13:00)
[2022-07-18 08:00] VITALS: BP 123/66
[2022-07-18] MEDS: HYDROCODONE/ACETAMINOPHEN 10/325MG TABLET PO PRN (08:17)
[2022-07-18] MEDS: BISACODYL 10MG SUPP PR SCH (09:00)
[2022-07-18] MEDS: ASPIRIN 81MG TABLET PO SCH (09:28)
[2022-07-18] MEDS: FAMOTIDINE 20MG TABLET PO SCH (09:28)
[2022-07-18] MEDS: METOPROLOL TARTRATE 100MG TABLET PO SCH (09:29)
[2022-07-18] MEDS: TAMSULOSIN HCL 0.4MG SR CAPSULE PO SCH (09:29)
[2022-07-18] MEDS: BICALUTAMIDE 50 MG TABLET PO SCH (09:31)
[2022-07-18] MEDS: AMLODIPINE 5MG TABLET PO SCH (09:33)
[2022-07-18] MEDS: HEPARIN 5000 UNITS/ML VIAL SUBCUT SCH (11:37)
[2022-07-18 12:09] VITALS: BP 121/66
== END 2022-07-18 14:45 | disposition home health service (06) | DRG 52 ==
PROVIDERS: ADMIT Physical Medicine & Rehabilitation Spinal Cord Injury Medicine; ATTEND Internal Medicine
PROC: 5A09357 Assistance with Respiratory Ventilation, Less than 24 Consecutive Hours, Continuous Positive Airway Pressure (ICD-10-PCS; principal; 2022-07-07)
PROC: 5A09357 Assistance with Respiratory Ventilation, Less than 24 Consecutive Hours, Continuous Positive Airway Pressure (ICD-10-PCS; 2022-07-08)
PROC: 5A09357 Assistance with Respiratory Ventilation, Less than 24 Consecutive Hours, Continuous Positive Airway Pressure (ICD-10-PCS; 2022-07-09)
PROC: 5A09357 Assistance with Respiratory Ventilation, Less than 24 Consecutive Hours, Continuous Positive Airway Pressure (ICD-10-PCS; 2022-07-10)
PROC: 5A09357 Assistance with Respiratory Ventilation, Less than 24 Consecutive Hours, Continuous Positive Airway Pressure (ICD-10-PCS; 2022-07-11)
PROC: 5A09357 Assistance with Respiratory Ventilation, Less than 24 Consecutive Hours, Continuous Positive Airway Pressure (ICD-10-PCS; 2022-07-12)
PROC: 5A09357 Assistance with Respiratory Ventilation, Less than 24 Consecutive Hours, Continuous Positive Airway Pressure (ICD-10-PCS; 2022-07-13)
PROC: 5A09357 Assistance with Respiratory Ventilation, Less than 24 Consecutive Hours, Continuous Positive Airway Pressure (ICD-10-PCS; 2022-07-14)
PROC: 5A09357 Assistance with Respiratory Ventilation, Less than 24 Consecutive Hours, Continuous Positive Airway Pressure (ICD-10-PCS; 2022-07-15)
PROC: 5A09357 Assistance with Respiratory Ventilation, Less than 24 Consecutive Hours, Continuous Positive Airway Pressure (ICD-10-PCS; 2022-07-16)
PROC: 5A09357 Assistance with Respiratory Ventilation, Less than 24 Consecutive Hours, Continuous Positive Airway Pressure (ICD-10-PCS; 2022-07-17)
PROC: 5A09357 Assistance with Respiratory Ventilation, Less than 24 Consecutive Hours, Continuous Positive Airway Pressure (ICD-10-PCS; 2022-07-18)
DX: S14.109A Unspecified injury at unspecified level of cervical spinal cord, initial encounter (principal); A41.59 Other Gram-negative sepsis; G82.50 Quadriplegia, unspecified; N17.0 Acute kidney failure with tubular necrosis; R65.20 Severe sepsis without septic shock; N13.6 Pyonephrosis; K59.2 Neurogenic bowel, not elsewhere classified; I13.0 Hypertensive heart and chronic kidney disease with heart failure and stage 1 through stage 4 chronic kidney disease, or unspecified chronic kidney disease; N18.30 Chronic kidney disease, stage 3 unspecified; N31.9 Neuromuscular dysfunction of bladder, unspecified; Q85.00 Neurofibromatosis, unspecified; E11.22 Type 2 diabetes mellitus with diabetic chronic kidney disease; I25.10 Atherosclerotic heart disease of native coronary artery without angina pectoris; J44.9 Chronic obstructive pulmonary disease, unspecified; R53.81 Other malaise; R26.9 Unspecified abnormalities of gait and mobility; Z96.0 Presence of urogenital implants; M47.26 Other spondylosis with radiculopathy, lumbar region; I50.9 Heart failure, unspecified; G89.29 Other chronic pain; F06.34 Mood disorder due to known physiological condition with mixed features; C61 Malignant neoplasm of prostate; F39 Unspecified mood [affective] disorder; M51.16 Intervertebral disc disorders with radiculopathy, lumbar region; E83.42 Hypomagnesemia; D64.9 Anemia, unspecified; Z92.3 Personal history of irradiation; Z79.4 Long term (current) use of insulin
CPT/HCPCS: 36415; 74018; 80048; 80053; 81003; 82306; 82607; 82728; 82746; 82962; 83036; 83540; 83550; 83735; 84100; 84134; 84443; 85025; 92523; 93970; 94640; 94660; 97110; 97116; 97162; 97166; 97530; 97535; C1893; C9113; J0692; J0885; J1644; J1815; J2185; J3475; J7030; J7050; J7060; J7626

== ENCOUNTER 2022-09-27 12:03 | Inpatient (IN) | payer MEDICARE, MEDICAID ==
[~2022-09-27] VITALS: Ht 157.5 cm; Wt 82.6 kg
[~2022-09-27 12:03] MED LIST changes: +HYDR-4009 MT; +LEVO-65 MT; -SODI650T MT
[2022-09-27] MEDS ORDERED: ACETAMINOPHEN 325MG TABLET PO STA ×2 (12:43→14:31)
[2022-09-27] MEDS ORDERED: MORPHINE SULFATE 4 MG/ML CPJ (NOT FOR IM USE) IV STA (12:43)
[2022-09-27] MEDS ORDERED: SODIUM CHLORIDE 0.9% 1000ML BAG (SEPSIS BOLUS) IV ONE (12:45)
[2022-09-27] MEDS ORDERED: VANCOMYCIN 1G PREMIX 200 ML IV ONE (12:45)
[2022-09-27] MEDS ORDERED: CEFTRIAXONE 1 G PREMIX 50 ML IV ONE (12:45)
[2022-09-27 15:33] LABS: HEMATOCRIT. 29.6 % (42.0-52.0); HEMOGLOBIN. 9.6 g/dL (14.0-18.0); MEAN CORPUSCULAR HEMOGLOBIN 31.9 pg (28.0-32.0); MEAN CORPUSCULAR VOLUME 98.2 fL (80.0-94.0); MEAN PLATELET VOLUME 8.1 fl (7.4-10.4); PLATELET 271 x1000/uL (130-400); RED BLOOD CELL COUNT 3.01 mill/uL (4.7-6.1); RED CELL DISTRIBUTION WIDTH 15.9 % (11.6-14.6)
[2022-09-27 15:37] LABS: CHLORIDE 107 mEq/L (98-107)
[2022-09-27 15:45] LABS: INR 1.2; PROTHROMBIN TIME 12.7 sec (9.6-11.0)
[2022-09-27 17:14] LABS: PLATELET ESTIMATE NORMAL
[2022-09-27] MEDS ORDERED: VANCOMYCIN 500MG PREMIX 100 ML IV NR (20:00)
[2022-09-27] MEDS ORDERED: CEFEPIME 1,000 MG in DEXTROSE 5% WATER 50 ML IV SCH (20:00)
[2022-09-27 21:31] LABS: CLARITY URINE TURBID (CLEAR); COLOR URINE YELLOW (YELLOW); KETONES URINE NEGATIVE (NEGATIVE); LEUKOCYTE ESTERASE URINE 3+ (NEGATIVE); NITRITE URINE NEGATIVE (NEGATIVE); OCCULT BLOOD URINE 2+ (NEGATIVE); PH URINE 6.5 (4.5-8.0); PROTEIN URINE 2+ (NEGATIVE); UROBILINOGEN URINE 0.2 E.U./dL (0.2-1.0)
[2022-09-27 21:42] VITALS: BP 135/85
[2022-09-27 23:35] VITALS: BP 135/80
[2022-09-28] VITALS (7 sets, daily range): BP systolic 123–150; BP diastolic 68–92
[2022-09-28] MEDS: SODIUM CHLORIDE 0.45% 1,000 ML IV SCH ×2 (09:09→21:18)
[2022-09-28 11:54] LABS: HEMATOCRIT. 28.2 % (42.0-52.0); HEMOGLOBIN. 9.1 g/dL (14.0-18.0); MEAN CORPUSCULAR HEMOGLOBIN 31.7 pg (28.0-32.0); MEAN CORPUSCULAR VOLUME 97.5 fL (80.0-94.0); MEAN PLATELET VOLUME 7.6 fl (7.4-10.4); PLATELET 259 x1000/uL (130-400); RED BLOOD CELL COUNT 2.89 mill/uL (4.7-6.1); RED CELL DISTRIBUTION WIDTH 15.9 % (11.6-14.6)
[2022-09-28] MEDS: ASPIRIN 81MG TABLET PO SCH (13:11)
[2022-09-28] MEDS: METOPROLOL TARTRATE 25MG TABLET PO SCH ×2 (13:12→20:56)
[2022-09-28] MEDS: AMLODIPINE 5MG TABLET PO SCH ×2 (13:12→20:56)
[2022-09-28 14:01] LABS: PLATELET ESTIMATE NORMAL
[2022-09-28] MEDS ORDERED: IPRATROPIUM/ALBUTEROL 0.5-3(2.5)MG/3ML NEB HHN PRN (17:00)
[2022-09-28] MEDS: IPRATROPIUM/ALBUTEROL 0.5-3(2.5)MG/3ML NEB HHN SCH ×2 (17:00→21:07)
[2022-09-28 18:57] LABS: BG BASE EXCESS -8.5 mmol/L (-2.0-2.0); BG CARBOXYHEMOGLOBIN 0.2 % (0.5-1.5); BG FRACTION INSPIRED OXYGEN 21; BG HCO3 ACT 15.8 mmol/L (22.0-26.0); BG METHEMOGLOBIN 0.3 % (0.0-1.5); BG OXYHEMOGLOBIN 96.5 % (94.0-97.0); BG PCO2 28.9 mmHg (35.0-45.0); BG PH 7.355 (7.350-7.450); BG PO2 93.9 mmHg (75.0-100.0); BG SAMPLE SITE LEFT BRACHIAL; BG TOTAL HEMOGLOBIN 10.9 g/dL (12.0-18.0); BG VENT MODE ROOM AIR
[2022-09-28] MEDS: ATORVASTATIN CALCIUM 20MG TABLET PO SCH (20:55)
[2022-09-28] MEDS: BUDESONIDE 0.5MG/2ML NEB HHN SCH (21:06)
[2022-09-28] MEDS: CEFEPIME 1,000 MG in DEXTROSE 5% WATER 50 ML IV SCH (21:34)
[2022-09-29] VITALS: BP 116/68
[2022-09-29] MEDS: IPRATROPIUM/ALBUTEROL 0.5-3(2.5)MG/3ML NEB HHN SCH ×3 (01:55→21:42)
[2022-09-29 04:00] VITALS: BP 115/68
[2022-09-29] MEDS: SODIUM CHLORIDE 0.45% 1,000 ML IV SCH ×2 (06:43→21:56)
[2022-09-29 06:58] LABS: HEMATOCRIT. 27.4 % (42.0-52.0); HEMOGLOBIN. 9.1 g/dL (14.0-18.0); MEAN PLATELET VOLUME 7.8 fl (7.4-10.4); PLATELET 258 x1000/uL (130-400); RED BLOOD CELL COUNT 2.83 mill/uL (4.7-6.1); RED CELL DISTRIBUTION WIDTH 15.8 % (11.6-14.6)
[2022-09-29 08:00] VITALS: BP 128/81
[2022-09-29] MEDS: BUDESONIDE 0.5MG/2ML NEB HHN SCH ×3 (08:50→21:43)
[2022-09-29] MEDS: AMLODIPINE 5MG TABLET PO SCH ×2 (09:21→21:52)
[2022-09-29] MEDS: ASPIRIN 81MG TABLET PO SCH (09:21)
[2022-09-29] MEDS: METOPROLOL TARTRATE 25MG TABLET PO SCH ×2 (09:21→21:51)
[2022-09-29 12:00] VITALS: BP 118/81
[2022-09-29 16:00] VITALS: BP 119/74
[2022-09-29] MEDS ORDERED: VANCOMYCIN 1500MG in DEXTROSE 5% WATER 250ML IV NR (17:30)
[2022-09-29 20:53] VITALS: BP 136/74
[2022-09-29 21:20] LABS: PLATELET ESTIMATE NORMAL
[2022-09-29] MEDS: ATORVASTATIN CALCIUM 20MG TABLET PO SCH (21:51)
[2022-09-29] MEDS: CEFEPIME 1,000 MG in DEXTROSE 5% WATER 50 ML IV SCH (21:52)
[2022-09-30] VITALS: BP 124/77
[2022-09-30] MEDS: IPRATROPIUM/ALBUTEROL 0.5-3(2.5)MG/3ML NEB HHN SCH ×4 (03:28→20:40)
[2022-09-30 04:00] VITALS: BP 122/77
[2022-09-30 06:42] LABS: BASOPHILS % 0.2 % (0.0-2.0); EOSINOPHILS % 2.2 % (0.0-5.0); HEMATOCRIT. 25.7 % (42.0-52.0); HEMOGLOBIN. 8.6 g/dL (14.0-18.0); LYMPHOCYTES % 10.4 % (20.0-50.0); MEAN CORPUSCULAR HEMOGLOBIN 32.8 pg (28.0-32.0); MEAN CORPUSCULAR VOLUME 97.7 fL (80.0-94.0); MEAN PLATELET VOLUME 7.7 fl (7.4-10.4); MONOCYTES % 8.2 % (2.0-8.0); PLATELET 258 x1000/uL (130-400); RED BLOOD CELL COUNT 2.63 mill/uL (4.7-6.1)
[2022-09-30 06:45] LABS: PHOSPHORUS 4.7 mg/dL (2.5-4.9)
[2022-09-30] MEDS: BUDESONIDE 0.5MG/2ML NEB HHN SCH ×2 (08:55→20:41)
[2022-09-30] MEDS: CITRIC ACID/SODIUM CITRATE SOLN 30ML UDC PO SCH ×3 (09:00→19:40)
[2022-09-30] MEDS: METOPROLOL TARTRATE 25MG TABLET PO SCH ×2 (10:46→21:25)
[2022-09-30] MEDS: ASPIRIN 81MG TABLET PO SCH (10:46)
[2022-09-30] MEDS: AMLODIPINE 5MG TABLET PO SCH ×2 (10:46→21:24)
[2022-09-30] MEDS: SODIUM CHLORIDE 0.45% 1,000 ML IV SCH (14:58)
[2022-09-30] MEDS ORDERED: GUAIFENESIN-DM 200MG-20MG/10ML UDC PO PRN (18:15)
[2022-09-30 20:12] VITALS: BP 133/79
[2022-09-30] MEDS: ATORVASTATIN CALCIUM 20MG TABLET PO SCH (21:24)
[2022-09-30] MEDS: CEFEPIME 1,000 MG in DEXTROSE 5% WATER 50 ML IV SCH (21:25)
[2022-10-01] VITALS: BP 120/69
[2022-10-01] MEDS: IPRATROPIUM/ALBUTEROL 0.5-3(2.5)MG/3ML NEB HHN SCH ×3 (01:24→14:45)
[2022-10-01 04:00] VITALS: BP 124/69
[2022-10-01] MEDS: SODIUM CHLORIDE 0.45% 1,000 ML IV SCH ×2 (04:00→21:03)
[2022-10-01 06:48] LABS: BASOPHILS % 0.3 % (0.0-2.0); EOSINOPHILS % 1.3 % (0.0-5.0); HEMATOCRIT. 26.7 % (42.0-52.0); HEMOGLOBIN. 8.9 g/dL (14.0-18.0); LYMPHOCYTES % 10.2 % (20.0-50.0); MEAN CORPUSCULAR HEMOGLOBIN 32.4 pg (28.0-32.0); MEAN CORPUSCULAR VOLUME 96.9 fL (80.0-94.0); MEAN PLATELET VOLUME 7.6 fl (7.4-10.4); MONOCYTES % 10.6 % (2.0-8.0); NEUTROPHILS % 77.6 % (40.0-76.0); PLATELET 264 x1000/uL (130-400); RED BLOOD CELL COUNT 2.75 mill/uL (4.7-6.1); RED CELL DISTRIBUTION WIDTH 15.5 % (11.6-14.6)
[2022-10-01 07:06] LABS: PHOSPHORUS 4.5 mg/dL (2.5-4.9)
[2022-10-01 08:00] VITALS: BP 120/74
[2022-10-01] MEDS ORDERED: SODIUM POLYSTYRENE SULFONATE 15 G/60 ML BOT PO NR (08:15)
[2022-10-01] MEDS: BUDESONIDE 0.5MG/2ML NEB HHN SCH (09:40)
[2022-10-01] MEDS: METOPROLOL TARTRATE 25MG TABLET PO SCH ×2 (09:41→21:03)
[2022-10-01] MEDS: ASPIRIN 81MG TABLET PO SCH (09:42)
[2022-10-01] MEDS: CITRIC ACID/SODIUM CITRATE SOLN 30ML UDC PO SCH ×3 (09:42→17:00)
[2022-10-01] MEDS: AMLODIPINE 5MG TABLET PO SCH ×2 (09:42→21:02)
[2022-10-01 12:00] VITALS: BP 124/59
[2022-10-01 16:00] VITALS: BP 137/73
[2022-10-01 20:00] VITALS: BP 133/72
[2022-10-01] MEDS: ATORVASTATIN CALCIUM 20MG TABLET PO SCH (21:02)
[2022-10-01] MEDS: CEFEPIME 1,000 MG in DEXTROSE 5% WATER 50 ML IV SCH (21:04)
[2022-10-02] VITALS: BP 121/62
[2022-10-02 04:00] VITALS: BP 125/68
[2022-10-02] MEDS: SODIUM CHLORIDE 0.45% 1,000 ML IV SCH (05:40)
[2022-10-02] MEDS: IPRATROPIUM/ALBUTEROL 0.5-3(2.5)MG/3ML NEB HHN SCH ×3 (08:13→20:47)
[2022-10-02] MEDS: ASPIRIN 81MG TABLET PO SCH (12:25)
[2022-10-02] MEDS: METOPROLOL TARTRATE 25MG TABLET PO SCH ×2 (12:25→21:51)
[2022-10-02] MEDS: AMLODIPINE 5MG TABLET PO SCH ×2 (12:25→21:51)
[2022-10-02] MEDS: CITRIC ACID/SODIUM CITRATE SOLN 30ML UDC PO SCH ×3 (12:26→18:49)
[2022-10-02] MEDS ORDERED: LEVO-65 MT (14:37)
[2022-10-02 16:16] VITALS: BP_SYST 115; BP_SYST 142; BP_DIAS 56; BP_DIAS 92
[2022-10-02 18:15] LABS: BASOPHILS % 0.4 % (0.0-2.0); EOSINOPHILS % 1.4 % (0.0-5.0); HEMATOCRIT. 26.3 % (42.0-52.0); HEMOGLOBIN. 8.8 g/dL (14.0-18.0); LYMPHOCYTES % 12.2 % (20.0-50.0); MEAN CORPUSCULAR VOLUME 95.9 fL (80.0-94.0); MEAN PLATELET VOLUME 7.5 fl (7.4-10.4); PLATELET 296 x1000/uL (130-400); RED BLOOD CELL COUNT 2.74 mill/uL (4.7-6.1); RED CELL DISTRIBUTION WIDTH 15.1 % (11.6-14.6)
[2022-10-02 20:00] VITALS: BP 127/73
[2022-10-02] MEDS: ATORVASTATIN CALCIUM 20MG TABLET PO SCH (21:51)
[2022-10-02] MEDS: CEFEPIME 1,000 MG in DEXTROSE 5% WATER 50 ML IV SCH (22:14)
[2022-10-03] VITALS: BP 118/62
[2022-10-03] MEDS: IPRATROPIUM/ALBUTEROL 0.5-3(2.5)MG/3ML NEB HHN SCH (00:20)
[2022-10-03 04:00] VITALS: BP 115/56
[2022-10-03 08:10] LABS: BASOPHILS % 0.7 % (0.0-2.0); EOSINOPHILS % 1.7 % (0.0-5.0); HEMATOCRIT. 25.6 % (42.0-52.0); HEMOGLOBIN. 8.6 g/dL (14.0-18.0); LYMPHOCYTES % 11.4 % (20.0-50.0); MEAN CORPUSCULAR VOLUME 95.5 fL (80.0-94.0); MEAN PLATELET VOLUME 7.6 fl (7.4-10.4); MONOCYTES % 7.7 % (2.0-8.0); NEUTROPHILS % 78.5 % (40.0-76.0); PLATELET 309 x1000/uL (130-400); RED BLOOD CELL COUNT 2.68 mill/uL (4.7-6.1); RED CELL DISTRIBUTION WIDTH 15.1 % (11.6-14.6)
== END 2022-10-03 08:35 | disposition home or self-care (01) | DRG 871 ==
LOC: ER 12:12 → 3WST 18:42
PROVIDERS: ADMIT Internal Medicine; ATTEND Internal Medicine
PROC: 5A09357 Assistance with Respiratory Ventilation, Less than 24 Consecutive Hours, Continuous Positive Airway Pressure (ICD-10-PCS; principal; 2022-09-28)
PROC: 5A09357 Assistance with Respiratory Ventilation, Less than 24 Consecutive Hours, Continuous Positive Airway Pressure (ICD-10-PCS; 2022-09-29)
PROC: 5A09357 Assistance with Respiratory Ventilation, Less than 24 Consecutive Hours, Continuous Positive Airway Pressure (ICD-10-PCS; 2022-09-30)
PROC: 5A09357 Assistance with Respiratory Ventilation, Less than 24 Consecutive Hours, Continuous Positive Airway Pressure (ICD-10-PCS; 2022-10-02)
PROC: 5A09357 Assistance with Respiratory Ventilation, Less than 24 Consecutive Hours, Continuous Positive Airway Pressure (ICD-10-PCS; 2022-10-03)
DX: A41.52 Sepsis due to Pseudomonas (principal); G82.50 Quadriplegia, unspecified; I13.0 Hypertensive heart and chronic kidney disease with heart failure and stage 1 through stage 4 chronic kidney disease, or unspecified chronic kidney disease; E44.0 Moderate protein-calorie malnutrition; I50.30 Unspecified diastolic (congestive) heart failure; N17.9 Acute kidney failure, unspecified; N39.0 Urinary tract infection, site not specified; R65.20 Severe sepsis without septic shock; Z20.822 Contact with and (suspected) exposure to COVID-19; E11.22 Type 2 diabetes mellitus with diabetic chronic kidney disease; E78.5 Hyperlipidemia, unspecified; I25.10 Atherosclerotic heart disease of native coronary artery without angina pectoris; J44.9 Chronic obstructive pulmonary disease, unspecified; N18.9 Chronic kidney disease, unspecified; N31.9 Neuromuscular dysfunction of bladder, unspecified; E11.42 Type 2 diabetes mellitus with diabetic polyneuropathy; N13.9 Obstructive and reflux uropathy, unspecified; G47.33 Obstructive sleep apnea (adult) (pediatric); D63.1 Anemia in chronic kidney disease; R26.9 Unspecified abnormalities of gait and mobility; R91.8 Other nonspecific abnormal finding of lung field; Q85.00 Neurofibromatosis, unspecified; Z68.33 Body mass index [BMI] 33.0-33.9, adult; Z85.46 Personal history of malignant neoplasm of prostate; Z87.891 Personal history of nicotine dependence; Z90.79 Acquired absence of other genital organ(s); Z92.3 Personal history of irradiation; Z79.4 Long term (current) use of insulin
CPT/HCPCS: 36415; 36600; 71045; 80048; 80053; 80202; 81003; 82375; 82550; 82575; 82805; 83605; 83735; 84100; 84145; 85025; 87077; 87186; 87426; 87804; 93005; 94640; 94660; 97116; 97162; 97166; 97530; 99291; C9803; J0692; J0696; J2270; J3370; J7030; J7060; J7626; A4315

== ENCOUNTER 2022-11-17 12:00 | Emergency (ER) | payer MEDICARE, MEDICAID ==
[~2022-11-17] VITALS: Ht 167.6 cm; Wt 73.0 kg
[2022-11-17 12:52] VITALS: BP 110/58
== END 2022-11-17 13:01 | disposition home or self-care (01) ==
LOC: ER 12:00
DX: I10 Essential (primary) hypertension (principal); J44.1 Chronic obstructive pulmonary disease with (acute) exacerbation; Z13.9 Encounter for screening, unspecified; Z98.890 Other specified postprocedural states; Z79.82 Long term (current) use of aspirin
CPT/HCPCS: 93005; 99283